=== PATIENT | male | born 1965 | race Caucasian/White ===

== ENCOUNTER 2017-12-21 07:15 | Inpatient (IN) | payer BC, OTHER ==
--- NOTE | 2017-12-25 06:35 | GHP ---
[f rep st] PREOP HISTORY AND PHYSICAL DATE OF ADMISSION: 12/28/2017 DATE OF PLANNED PROCEDURE: 12/28/2017. PREOPERATIVE DIAGNOSIS: Osteoarthritis, left shoulder. PLANNED PROCEDURE: Left total shoulder arthroplasty. HISTORY: The patient is a 52-year-old male with worsening shoulder pain that has failed conservative management. He has undergone bilateral total knee replacements for osteoarthritis and has done well with those and he would like to proceed with a left total shoulder arthroplasty. This has limited h is ability to perform functions of daily living. PRIOR MEDICAL HISTORY: Obesity, arthritis, diabetes, high cholesterol, reflux, gout, hypertension, s leep apnea, hypothyroidism. MEDICATIONS: Amlodipine 10 mg, Sawyer Thyroid 60 mg, lisinopril 40 mg. ALLERGIES: No known drug allergies. SOCIAL HISTORY: Currently working. He is . Heavy alcohol drinker. Does not smoke. REVIEW OF SYSTEMS: No shortness of breath or chest pain. PHYSICAL EXAMINATION: VITAL SIGNS: He is 5 feet 7 inches tall, weighs 290 pounds. BMI is 45. Bloo d pressure is 152/90, heart rate is 82, respiratory rate is 18 on room air. GENERAL: He is alert an d oriented x3. HEENT: Normocephalic, atraumatic. Extraocular muscles intact. NECK: Supple. No l ymphadenopathy. No JVD. CHEST: Clear to auscultation. CARDIOVASCULAR: Regular rate and rhythm. ABDOMEN: Obese, soft, nontender, nondistended. There is no hepatosplenomegaly. LEFT UPPER EXTREMIT Y: Left shoulder shows limited range of motion from full extension to about 120 degrees of forward f lexion, 60 degrees, internal and external rotation. NEUROLOGICAL: Supraspinatus, infraspinatus stre ngth are 4/5 with pain, subscapularis 4+ out of 5. IMAGING: Both plain imaging, which show severe osteoarthritis of the left glenohumeral joint and MRI imaging shows the rotator cuff to be intact. There is some partial tearing but the majority of fibe rs are intact. There is severe osteoarthritis on the MRI as well. ASSESSMENT: Severe osteoarthritis, left shoulder. PLAN: The patient is really quite limited with the shoulder at this point, he has done well with his knee replacements. I recommend proceeding with a left total shoulder arthroplasty. I did discuss w ith him the possibility if his rotator cuff was not in good shape, we would do a reverse, although gi nick its appearance on MRI, I feel pretty confident this will be a total shoulder arthroplasty and he understands that. Risks and benefits of continued pain, possible revision surgery needed in the futu re were explained to him. We would plan on 1 or 2 days in the hospital postoperatively. Preoperativ e paperwork was completed today and we will plan on surgery Thursday at [facility]. /[id number]/MODL
[2017-12-28] MEDS ORDERED: ceFAZolin 3 GM in D5W 100 ML IV ONE (06:00)
[2017-12-28] MEDS ORDERED: ceFAZolin 3 GM in STERILE WATER INJ 30 ML IV ONE (06:00)
[2017-12-28] MEDS ORDERED: LIDOCAINE 1% 2 ML INJ ONE (06:02)
[2017-12-28] MEDS ORDERED: LR 1,000 ML IV ONE (06:16)
[2017-12-28] MEDS ORDERED: LIDOCAINE 1% 2 ML INJ ID PRN (06:16)
[2017-12-28] MEDS ORDERED: BACITRACIN 50,000 UNITS/10 ML SYR IRR ONE (06:55)
[2017-12-28] MEDS ORDERED: BUPIVACAINE/EPI 0.5% 30 ML SDV ONE (06:55)
[2017-12-28] MEDS ORDERED: POLYMYXIN B SULFATE 500,000 UNIT/10 ML SYR IRR ONE (06:55)
--- NOTE | 2017-12-28 07:03 | PDHPUP ---
History & Physical Update H&P update statement: This history and physical update is based on an assessment of the patient which was completed after admission or registration (within 24 hours), but prior to the surgery/procedure. H&P update: H&P reviewed & patient examined, no change in patient's condition since H&P completed
[2017-12-28] MEDS ORDERED: MIDAZOLAM 2 MG/2 ML VIAL ONE (07:04)
[2017-12-28] MEDS ORDERED: MIDAZOLAM 2 MG/2 ML VIAL IVP ONE (07:05)
--- NOTE | 2017-12-28 07:12 | PDANEPAE ---
ANE History of Present Illness Left Total shoulder arthroplasty ANE Past Medical History - Cardiovascular History Hx Hypertension: Yes Hx Arrhythmias: No Hx Chest Pain: No Hx Coronary Artery / Peripheral Vascular Disease: No Hx CHF / Valvular Disease: No Hx Palpitations: No Cardiovascular History Comment: pcp monitors bp meds - Pulmonary History Hx COPD: No Hx Asthma/Reactive Airway Disease: No Hx Recent Upper Respiratory Infection: No Hx Oxygen in Use at Home: No Hx Sleep Apnea: Yes Sleep Apnea Screening Result - Last Documented: Positive Pulmonary History Comment: danuta positive- pt doesn't use cpap- states it is only a problem when he drinks - Neurologic History Hx Cerebrovascular Accident: No Hx Seizures: No Hx Dementia: No Neurologic History Comment: hx of lami - Endocrine History Hx Diabetes: No Hypothyroid: No Endocrine History Comment: hypothyroidism - Renal History Hx Renal Disorders: No - Liver History Hx Hepatic Disorders: No - Neurological & Psychiatric Hx Hx Neurological and Psychiatric Disorders: No - Cancer History Hx Cancer: No - Congenital Disorder History Hx Congenital Disorders: No - GI History GERD: mild Hx Gastrointestinal Disorders: Yes Gastrointestinal History Comment: reflux - Other Health History Other Health History: gout. wears glasses - Chronic Pain History Chronic Pain: Yes (left shoulder) - Surgical History Prior Surgeries: bilateral TKA's 01/23/17 and 05/20/17. laminectomy 07/31/15 ANE Review of Systems Review of Systems: - Exercise capacity METS (RN): 4 METS ANE Patient History - Allergies Allergies/Adverse Reactions: No Known Allergies Allergy (Verified 12/15/17 16:14) - Home Medications Home Medications: Acetaminophen [Tylenol ES 500 mg (*)] 1,000 mg PO BID 11/27/17 [Last Taken 12/27] Fluticasone Nasal [Flonase Nasal [place] (RX)] 1 sprays NASAL DAILY PRN 11/27/17 [ Last Taken 12/28/17] Herbals/Supplements -Info Only 1 ea PO DAILY 11/27/17 [Last Taken Unknown] Ibuprofen [Motrin (*)] 200 mg PO BID 11/27/17 [Last Taken 12/21/17] Lisinopril [Zestril 40 mg (*)] 40 mg PO DAILY 11/27/17 [Last Taken 12/26/17] Omeprazole [Prilosec 20 mg] 20 mg PO DAILY PRN 11/27/17 [Last Taken 12/26/17] Thyroid [Elroy Thyroid 60 MG (*)] 60 mg PO DAILY10 11/27/17 [Last Taken ] amLODIPine BESYLATE [Norvasc 10 mg (*)] 10 mg PO DAILY 11/27/17 [Last Taken 11/02] - NPO status NPO Since - Liquids (Date): 12/27/17 NPO Since - Liquids (Time): 21:00 NPO Since - Solids (Date): 12/27/17 NPO Since - Solids (Time): 19:30 - Anes Hx Anes Hx: slow to awaken from anesthesia - Smoking Hx Smoking Status: Never smoked - Family Anes Hx Family Anes Hx: none Family Hx Anesthesia Complications: none ANE Labs/Vital Signs - Vital Signs Blood Pressure: 125/76 Heart Rate: 70 Respiratory Rate: 16 O2 Sat (%): 94 Height: 170.18 cm Weight: 127.006 kg ANE Physical Exam - Airway Mallampati Score: Class 4 - Pulmonary Pulmonary: no respiratory distress, no rales or rhonchi - ASA Status ASA Status: III ANE Anesthesia Plan Anesthesia Plan: general endotracheal anesthesia Specialized Airway: video laryngoscope
[2017-12-28] MEDS ORDERED: fentaNYL 250 MCG/5 ML INJ ONE (07:18)
[2017-12-28] MEDS ORDERED: PROPOFOL/EMULSION 500 MG/50 ML BOTTLE IV ONE ×2 (07:19→08:22)
[2017-12-28] MEDS ORDERED: SUCCINYLCHOLINE CHLORIDE 200 MG/10 ML SYR IVP ONE (07:21)
[2017-12-28] MEDS ORDERED: GLYCOPYRROLATE 0.2 MG/1 ML VIAL ONE ×2 (07:22→10:23)
[2017-12-28] MEDS ORDERED: DEXAMETHASONE 4 MG/ML VIAL ONE ×2 (08:20)
[2017-12-28] MEDS ORDERED: ROCURONIUM 50 MG/5 ML VIAL ONE ×2 (08:20→08:21)
[2017-12-28] MEDS ORDERED: LIDOCAINE 2% 5 ML SDV ONE (08:22)
[2017-12-28] MEDS ORDERED: ROPIVACAINE HCL 150 MG/30 ML INJ ONE (08:22)
[2017-12-28] MEDS ORDERED: ONDANSETRON 4 MG/2 ML VIAL ONE ×4 (08:22→10:23)
[2017-12-28] MEDS ORDERED: fentaNYL 100 MCG/2 ML INJ ONE (08:25)
[2017-12-28] MEDS ORDERED: PHENYLEPHRINE HCL 100 MCG/ML SYR ONE ×2 (08:35→09:47)
[2017-12-28] MEDS ORDERED: THROMBIN (BOVINE) 5,000 UNIT VIAL TP ONE (08:46)
[2017-12-28] MEDS ORDERED: CALCIUM CHLORIDE 1 GM/10 ML INJ ONE (08:46)
[2017-12-28] MEDS ORDERED: KETOROLAC 30 MG/1 ML SDV IVP ONE (10:14)
[2017-12-28] MEDS ORDERED: ONDANSETRON 4 MG/2 ML VIAL IVP PRN ×2 (10:14→10:37)
--- NOTE | 2017-12-28 10:14 | POSTOPPROG ---
Post Op Note Date of Operation: 12/28/17 Surgeon: Neeraj Ordaz Distillery Miller: MICHAEL Bangura Anesthesiologist: Gail Nuñez Anesthesia: GET(General Endotracheal) Pre-op Diagnosis: OA lt shoulder Post-op Diagnosis: same Procedure: L TSA Findings: Sever GH OA Inf/Abcess present in the surg proc area at time of surgery?: No EBL: 50-100 Complications: none
[2017-12-28] MEDS ORDERED: D5W 1/2 NS W/ 20 KCl/L 1,000 ML IV SCH (10:15)
[2017-12-28] MEDS ORDERED: oxyCODONE IR 5 MG TAB PO PRN (10:21)
[2017-12-28] MEDS ORDERED: FLUTICASONE NASAL 120 SPRAYS/16 GM MDI EACHNARE PRN (10:22)
[2017-12-28] MEDS ORDERED: NON-FORMULARY NEW DRUG (Omeprazole [Prilosec 20 Mg] 20 MG) PO PRN (10:22)
[2017-12-28] MEDS ORDERED: NEOSTIGMINE METHYLSULFATE 3 MG/3 ML SYR ONE (10:23)
[2017-12-28] MEDS ORDERED: HYDROmorphONE/DILAUDID 1 MG/ML INJ IVP PRN (10:37)
[2017-12-28] MEDS ORDERED: OXYCODONE/APAP 5/325 TAB PO PRN (10:37)
[2017-12-28] MEDS ORDERED: fentaNYL 100 MCG/2 ML INJ IVP PRN (10:37)
[2017-12-28] MEDS ORDERED: NALOXONE HCL 0.4 MG/ML INJ IVP PRN (10:37)
[2017-12-28] MEDS ORDERED: PANTOPRAZOLE SODIUM 40 MG TAB PO PRN (11:47)
[2017-12-28] MEDS: KETOROLAC 15 MG/1 ML SDV IVP SCH ×4 (11:54→23:28)
[2017-12-28] MEDS ORDERED: ceFAZolin 2 GM/DEXTROSE 100 ML IV SCH (14:00)
--- NOTE | 2017-12-28 14:33 | GOP ---
[f rep st] OPERATIVE REPORT DATE OF OPERATION: 12/28/2017 SURGEON: Neeraj Ordaz MD WATER PUMP ASSEMBLER: Tien Tran, NATHANIEL ANESTHESIA: Interscalene block with general. ANESTHESIOLOGIST: Gail Nuñez MD PREOPERATIVE DIAGNOSIS: Osteoarthritis left shoulder. POSTOPERATIVE DIAGNOSIS: Osteoarthritis left shoulder. PROCEDURE PERFORMED: Left total shoulder arthroplasty. FINDINGS: INDICATIONS: Delfin is a 52-year-old male with severe osteoarthritis of the left shoulder. He has unde rgone bilateral total knee replacements. He has now rehabbed those and is ready to proceed with a to shorty shoulder arthroplasty on the left. DESCRIPTION OF PROCEDURE: After appropriate informed consent was obtained, the patient was taken to the operating room, placed supine on the operating table. Time-out was performed. Patient was ident ified, correct site was identified, matched with the radiographs available in the room. He received 3 g of Ancef preoperatively. Dr. Nuñez administered an interscalene block, followed by general endot last tube anesthesia. The patient was then positioned in the beach chair position with all bony p rominences well padded. Head of bed was elevated about 60 degrees. Left upper extremity was prepped and draped in usual sterile fashion. A standard deltopectoral incision. Bleeding was controlled wi th electrocautery and the Aquamantys device. I developed the interval between the deltoid and the pe c, took the cephalic vein toward the medial side, elevated the soft tissues off the anterior aspect o f the humerus. A blunt Hohmann retractor was placed into the rotator interval. I identified the ante rior humeral circumflex vessels. These were cauterized with the Aquamantys device. I then made a mi d tendon incision, released the subscapularis tendon, tagged it for later repair with a cuff of tissu e remaining on the lesser tuberosity. I had performed inferior capsular releases. I externally rota yulia the arm, being careful to protect the axillary nerve throughout the entirety of the procedure. W e then used our oscillating saw and resected our humeral head. We used a Fukuda retractor and retrac yulia the humeral head out of the way and then I completed my inferior and anterior capsular release fr om the glenoid. I was able to get a glenoid retractor anteriorly. We then prepared the glenoid findi ng the center hole, drilling our pin there and then we drilled using our guide, our superior, middle and 3 inferior PEG holes. This was done after we had reamed the glenoid removing any remaining carti ximena. There was no anterior or posterior glenoid loss. We then cemented our glenoid component in plac e. Excess cement was removed. I then turned my attention to the humerus, externally rotated the hum erus and we broached using a 678 broach sequentially and we broached all the way up to size 11. We c hecked our retroversion using our guide and I was satisfied with that. Size 11 gave us good purchase in the bone, good rotational stability. We then trialed the 54, 56 offset head, good range of motion . Cross shoulder test, the shoulder did not dislocate. I irrigated the wound, placed our final stem, tapped our head in place, reduced the head, irrigated the wound again, closed our subscap with #5 Fi berWire. I instilled 10 mL of PRP plasma over the cut surfaces of bone. Superficial layers closed wit h 2-0 Vicryl. Skin was closed with 3-0 Monocryl in a subcuticular fashion. Steri-Strips were applie d. We instilled 20 mL of 0.5% Marcaine with epinephrine around the incision. Sterile dressing. A sl ing was applied. Patient was awakened from anesthesia, taken to recovery room in satisfactory condit ion. There were no immediate intraoperative complications. Elgin Tran' assistance was required thro ughout the entire case. IMPLANTS USED: Arthrex Universe large glenoid cemented 11 mm humeral stem with a 56 offset humeral h ead. COMPLICATIONS: None. DRAINS: None. /[id number]/MODL
[2017-12-28] MEDS: ceFAZolin 2 GM/SWFI 2 GM/20 ML SYR IVP SCH ×2 (15:59→23:28)
[2017-12-28] MEDS: HYDROCODONE/APAP 5/325 TAB PO PRN (18:22)
[2017-12-28] MEDS: DOCUSATE SODIUM 100 MG CAP PO SCH (23:28)
[2017-12-29] MEDS: KETOROLAC 15 MG/1 ML SDV IVP SCH (05:17)
[2017-12-29] MEDS: HYDROCODONE/APAP 5/325 TAB PO PRN ×2 (08:03→11:35)
[2017-12-29] MEDS: DOCUSATE SODIUM 100 MG CAP PO SCH (08:04)
[2017-12-29] MEDS ORDERED: LISINOPRIL 40 MG TAB PO SCH (09:00)
[2017-12-29] MEDS ORDERED: THYROID 60 MG TAB PO SCH (10:00)
[2017-12-29 11:33] VITALS: RESP 16; O2SAT 93
--- NOTE | 2017-12-29 12:30 | SOAPPROG ---
SOAP Progress Note Assessment/Plan: Assessment: Plan: - dc home 12/29/17 12:29 Subjective: Doing well Objective: Vital Signs Temp Pulse Resp BP Pulse Ox 37.4 C 73 16 124/82 H 93 12/29/17 11:30 12/29/17 11:30 12/29/17 11:30 12/29/17 11:30 12/29/17 11:30 12/28/17 12/29/17 12/30/17 05:59 05:59 05:59 Intake Total 4526 200 Balance 4526 200 wound cdi, nvi, compartments soft - Time Spent With Patient Time Spent With Patient: 20 - Pending Discharge Pending Discharge Within 24 Hours: Yes Pending Discharge Within 48 Hours: No Pending Discharge Date: 12/30/17 Pending Discharge Time: 11:00 ICD10 Worksheet Patient Problems: Problems Problem Status Onset Arthralgia of left shoulder region Acute - ICD10 Problem Qualifiers (1) Arthralgia of left shoulder region
--- NOTE | 2017-12-29 13:26 | ASMTCMCOM ---
CM Note CM Note Notes: Pt had shoulder surgery. No therapies ordered. No CM d/c needs identified. Pt medically stable for d/c. Date Signed: 12/29/2017 01:25 PM Electronically Signed By:STANLEY Gonzalez
--- NOTE | 2017-12-29 15:12 | POSTANESTH ---
Post Anesthetic Evaluation Cardiovascular Status: Normal, Stable Respiratory Status: Normal, Stable Level of Consciousness/Mental Status: Can Participate in Eval Pain Control: Adequate, Prn Tx Ordered Nausea/Vomiting Control: Adequate, Prn Tx Ordered Complications Possibly Related to Anesthesia: None Noted (ISB worked til this am 0800. Good pain control. Pain Ok with pills Plan DC home)
[2017-12-29 15:54] VITALS: BP 119/71; PULSE 70; TEMP 98.8
== END 2017-12-29 17:32 | disposition home or self-care (01) | DRG 483 ==
LOC: F3N 12-28 05:50
PROVIDERS: ADMIT Orthopaedic Surgery; ATTEND Orthopaedic Surgery
PROC: 0RRK0JZ Replacement of Left Shoulder Joint with Synthetic Substitute, Open Approach (ICD-10-PCS; principal; 2017-12-28 07:15)
DX: M19.012 Primary osteoarthritis, left shoulder (principal); Z96.653 Presence of artificial knee joint, bilateral; I10 Essential (primary) hypertension; E03.9 Hypothyroidism, unspecified
CPT/HCPCS: C1713; J0330; J0690; J1100; J1885; J2250; J2370; J2405; J2704; J2710; J2795; J3010

== ENCOUNTER 2019-04-25 05:44 | Inpatient (IN) | payer OTHER, MEDICAID | END 2019-04-26 13:21 | disposition home or self-care (01) | LOC: F3N 05:44 ==